=== PATIENT | female | born 1950 | race Caucasian/White ===

== ENCOUNTER → 2020-05-27 | Outpatient (CLI) | payer MEDICARE ==
[~2020-05-27] MED LIST: ASPIR-LOW81 MG PO; CYCLOBENZAPRINE5 MG PO; FORTAMET1000 MG PO; GABAPENTIN400 MG PO; HYDROCHLOROTHIA25 MG PO; KLONOPIN TAB 00.5 MG PO; LEVAQUIN500 MG PO; LISINOPRIL20 MG PO; LORTAB 7.5-3251 EACH PO; MECLIZINE HCL25 MG PO; METOPROLOL SUCC25 MG PO; NORCO 5-325 TA1 EACH PO; PERCOCET 5-3251 EACH PO; PHENERGAN 12.12.5 M1 PO; PLAVIX 75 MG TA75 MG PO; PREDNISONE 20 M20 MG PO; PREDNISONE20 MG PO; PROTONIX 40 MG40 M1 PO; RANEXA500 MG PO; SIMVASTATIN20 MG PO; TAMIFLU75 MG PO; TYLENOL WITH C1 EACH PO; VIBRAMYCIN100 MG PO
[2020-05-27 08:32] LABS: HEMOGLOBIN 12.9 gm/dl (12.3-15.3); RED BLOOD COUNT 4.12 M/UL (4.00-5.10); WHITE BLOOD COUNT 6.6 K/UL (4.5-11.0)
[2020-05-27 08:54] LABS: BUN/CREATININE RATIO 22 (0-10)
[2020-05-28 09:14] LABS: CREATININE, URINE 187.7 mg/dL (Not Estab.)
[2020-05-28 10:14] LABS: THYROXINE (T4) 5.5 ug/dL (4.5-12.0)
== END ==
LOC: LAB 07:57
PROVIDERS: Nurse Practitioner Family
DX: E11.9 Type 2 diabetes mellitus without complications (principal); E78.5 Hyperlipidemia, unspecified; R53.83 Other fatigue; E55.9 Vitamin D deficiency, unspecified
CPT/HCPCS: 36415; 80053; 80061; 82043; 82570; 83036; 84436; 84443; 84480; 85025

== ENCOUNTER → 2020-07-02 | Outpatient (CLI) | payer MEDICARE | LOC: LAB 08:59 | DX: E55.9 Vitamin D deficiency, unspecified (principal) | CPT/HCPCS: 36415 ==

== ENCOUNTER → 2020-07-09 | Outpatient (CLI) | payer MEDICARE | LOC: RAD 10:39 | DX: Z09 Encounter for follow-up examination after completed treatment for conditions other than malignant neoplasm (principal); Z87.01 Personal history of pneumonia (recurrent); Z95.0 Presence of cardiac pacemaker | CPT/HCPCS: 71046 ==

== ENCOUNTER → 2020-07-24 | Outpatient (CLI) | payer MEDICARE | LOC: RAD 10:24 | DX: M25.511 Pain in right shoulder (principal); M19.011 Primary osteoarthritis, right shoulder | CPT/HCPCS: 73030 ==

== ENCOUNTER 2020-09-11 12:40 | Emergency (ER) | payer MEDICARE ==
[~2020-09-11 12:40] MED LIST changes: -GABAPENTIN400 MG PO; -MECLIZINE HCL25 MG PO; -PHENERGAN 12.12.5 M1 PO; -PROTONIX 40 MG40 M1 PO
[2020-09-11 14:43] LABS: BUN/CREATININE RATIO 23 (0-10)
[2020-09-11 15:19] LABS: RED BLOOD COUNT 4.21 M/UL (4.00-5.10); WHITE BLOOD COUNT 8.3 K/UL (4.5-11.0)
[2020-09-11] MEDS ORDERED: PHENERGAN 12.12.5 M1 PO (17:46)
[2020-09-22] MEDS ORDERED: MECLIZINE HCL25 MG PO (08:25)
[2020-09-22] MEDS ORDERED: GABAPENTIN400 MG PO (08:45)
[2020-09-22] MEDS ORDERED: PROTONIX 40 MG40 M1 PO (11:01)
== END 2020-09-11 17:55 | disposition home or self-care (01) ==
LOC: ER1 12:40
PROVIDERS: Physician Assistant
DX: K83.8 Other specified diseases of biliary tract (principal); R51.9 Headache, unspecified; R11.2 Nausea with vomiting, unspecified; R19.7 Diarrhea, unspecified; F17.210 Nicotine dependence, cigarettes, uncomplicated; Z88.0 Allergy status to penicillin
CPT/HCPCS: 70450; 71045; 80053; 81001; 82150; 82550; 82553; 83605; 83690; 83874; 84484; 85025; 87040; 93005; 96374; 96375; 96376; 99284; J2270; J2405; Q9965

== ENCOUNTER → 2020-09-22 | Day surgery (SDC) | payer MEDICARE ==
[~2020-09-22] MED LIST changes: +GABAPENTIN400 MG PO; +MECLIZINE HCL25 MG PO; +PHENERGAN 12.12.5 M1 PO; +PROTONIX 40 MG40 M1 PO
== END | disposition home or self-care (01) ==
LOC: OR 07:19
DX: K29.50 Unspecified chronic gastritis without bleeding (principal); K22.70 Barrett's esophagus without dysplasia; K21.00 Gastro-esophageal reflux disease with esophagitis, without bleeding; B96.81 Helicobacter pylori [H. pylori] as the cause of diseases classified elsewhere; K44.9 Diaphragmatic hernia without obstruction or gangrene; K83.8 Other specified diseases of biliary tract; K86.89 Other specified diseases of pancreas; I10 Essential (primary) hypertension; I48.91 Unspecified atrial fibrillation; E11.9 Type 2 diabetes mellitus without complications; E78.00 Pure hypercholesterolemia, unspecified; M19.90 Unspecified osteoarthritis, unspecified site; F17.210 Nicotine dependence, cigarettes, uncomplicated; Z88.6 Allergy status to analgesic agent; Z88.0 Allergy status to penicillin; Z88.8 Allergy status to other drugs, medicaments and biological substances; Z79.02 Long term (current) use of antithrombotics/antiplatelets; Z79.82 Long term (current) use of aspirin; Z79.84 Long term (current) use of oral hypoglycemic drugs; Z79.899 Other long term (current) drug therapy
CPT/HCPCS: 82962; J2001; J2704; J7040

== ENCOUNTER 2021-01-10 07:53 | Emergency (ER) | payer MEDICARE | END 2021-01-10 11:48 | disposition home or self-care (01) | LOC: ER1 07:53 | DX: R51.9 Headache, unspecified (principal); E78.5 Hyperlipidemia, unspecified; E11.9 Type 2 diabetes mellitus without complications; I10 Essential (primary) hypertension; Z90.710 Acquired absence of both cervix and uterus; Z88.0 Allergy status to penicillin; Z88.1 Allergy status to other antibiotic agents; Z20.822 Contact with and (suspected) exposure to COVID-19 | CPT/HCPCS: 99284; U0002 ==

== ENCOUNTER 2021-01-23 11:35 | Emergency (ER) | payer MEDICARE | END 2021-01-23 12:31 | disposition home or self-care (01) | LOC: ER1 11:35 | DX: U07.1 COVID-19 (principal); I11.9 Hypertensive heart disease without heart failure; E11.9 Type 2 diabetes mellitus without complications; Z95.1 Presence of aortocoronary bypass graft; Z88.8 Allergy status to other drugs, medicaments and biological substances; Z88.0 Allergy status to penicillin | CPT/HCPCS: 99284 ==

== ENCOUNTER 2021-03-08 15:32 | Emergency (ER) | payer MEDICARE ==
[2021-03-08 17:12] LABS: HEMOGLOBIN 13.4 gm/dl (12.3-15.3); RED BLOOD COUNT 4.18 M/UL (4.00-5.10); WHITE BLOOD COUNT 5.8 K/UL (4.5-11.0)
[2021-03-08 18:02] LABS: BUN/CREATININE RATIO 19 (0-10)
== END 2021-03-08 18:55 | disposition home or self-care (01) ==
LOC: ER1 15:32
PROVIDERS: Nurse Practitioner
DX: R51.9 Headache, unspecified (principal); I10 Essential (primary) hypertension; E11.9 Type 2 diabetes mellitus without complications
CPT/HCPCS: 70450; 80053; 85025; 96374; 96375; 99284; J1100; J1200; J1885

== ENCOUNTER 2021-04-22 13:18 | Emergency (ER) | payer MEDICARE ==
[2021-04-22 14:12] LABS: HEMOGLOBIN 13.8 gm/dl (12.3-15.3); RED BLOOD COUNT 4.21 M/UL (4.00-5.10); WHITE BLOOD COUNT 6.5 K/UL (4.5-11.0)
[2021-04-22 14:32] LABS: BUN/CREATININE RATIO 25 (0-10)
[2021-04-22] MEDS ORDERED: HYDROCODON-ACE1 EAC4 PO (19:43)
== END 2021-04-22 19:49 | disposition home or self-care (01) ==
LOC: ER1 13:18
PROVIDERS: Emergency Medicine
DX: R51.9 Headache, unspecified (principal); I10 Essential (primary) hypertension; E78.5 Hyperlipidemia, unspecified; Z95.0 Presence of cardiac pacemaker
CPT/HCPCS: 70450; 70496; 70498; 80053; 85025; 85652; 96374; 96375; 99284; J2270; J2405; Q9967

== ENCOUNTER → 2021-06-22 | Outpatient (CLI) | payer MEDICARE ==
[~2021-06-22] MED LIST changes: +HYDROCODON-ACE1 EAC4 PO
== END ==
LOC: MAMO 14:24
DX: Z12.31 Encounter for screening mammogram for malignant neoplasm of breast (principal)
CPT/HCPCS: 77063; 77067